=== PATIENT | female | born 1980 | race Two or more races ===

== ENCOUNTER 2019-07-06 14:04 | Emergency (ER) | payer OTHER ==
[~2019-07-06] VITALS: Ht 165.1 cm; Wt 70.4 kg
[2019-07-06 14:14] VITALS: BP 138/76
--- NOTE | 2019-07-06 14:39 | PHYS DOC ---
Past History Past Medical History: No Pertinent History Past Surgical History: Appendectomy, Additional Past Surgical Histo: bilateral knee scopes, bunionectomy Alcohol Use: Occasionally General Adult EDM: Chief Complaint: SUICIDAL IDEATION HPI: HPI: 39-year-old female presents with suicidal ideation. The patient has been feeling depressed for an extended period of time. She has been thinking more about suicide lately. There is no specific inciting event. She has not been developing a specific plan. She is just feeling overwhelmed by life right now. The patient was admitted to an inpatient facility in the . Patient denies any current self-harm. She denies drug use. She did have 1 alcoholic beverage yesterday. Denies fever chills. Review of Systems: Review of Systems: Constitutional: Denies fever or chills Eyes: Denies change in visual acuity HENT: Denies nasal congestion or sore throat Respiratory: Denies cough or shortness of breath Cardiovascular: Denies chest pain or edema GI: Denies abdominal pain, nausea, vomiting, bloody stools or diarrhea : Denies dysuria Musculoskeletal: Denies back pain or joint pain Integument: Denies rash Neurologic: Denies headache, focal weakness or sensory changes Endocrine: Denies polyuria or polydipsia Lymphatic: Denies swollen glands Psychiatric: Depression and suicidal ideation Heart Score: Risk Factors: Risk Factors: DM, Current or recent (<one month) smoker, HTN, HLP, family history of CAD, obesity. Risk Scores: Score 0 - 3: 2.5% MACE over next 6 weeks - Discharge Home Score 4 - 6: 20.3% MACE over next 6 weeks - Admit for Clinical Observation Score 7 - 10: 72.7% MACE over next 6 weeks - Early Invasive Strategies Allergies: Allergies: Allergies Coded Allergies Type Severity Reaction Last Updated Verified No Known Drug Allergies 07/06/19 No Physical Exam: PE: Constitutional: Well developed, well nourished, no acute distress, non-toxic appearance. [] HENT: Normocephalic, atraumatic, bilateral external ears normal, oropharynx moist, no oral exudates, nose normal. [] Eyes: PERRLA, EOMI, conjunctiva normal, no discharge. [] Neck: Normal range of motion, no tenderness, supple, no stridor. [] Cardiovascular: Heart rate regular rhythm, no murmur [] Lungs & Thorax: Bilateral breath sounds clear to auscultation [] Abdomen: Bowel sounds normal, soft, no tenderness, no masses, no pulsatile masses. [] Skin: Warm, dry, no erythema, no rash. [] Back: No tenderness, no CVA tenderness. [] Extremities: No tenderness, no cyanosis, no clubbing, ROM intact, no edema. [] Neurologic: Alert and oriented X 3, normal motor function, normal sensory function, no focal deficits noted. [] Psychologic: Affect flat, judgement normal, mood depressed, tearful. [] Current Patient Data: Vital Signs: Vital Signs Date Time Temp Pulse Resp B/P (MAP) Pulse Ox O2 Delivery O2 Flow Rate FiO2 07/05/ 14:14 98.0 92 20 138/76 (96) 100 Room Air EKG: EKG: [] Radiology/Procedures: Radiology/Procedures: [] Course & Med Decision Making: Course & Med Decision Making Pertinent Labs and Imaging studies reviewed. (See chart for details) Patient's labs are unremarkable. Her urinalysis is negative for infection or drug use. She is ready for psychiatric evaluation. Her screening is in process. Patient does not meet criteria for inpatient admission. She will be discharged with a safety plan. [] Dragon Disclaimer: Dragon Disclaimer: This electronic medical record was generated, in whole or in part, using a voice recognition dictation system. Departure Departure: Impression: Primary Impression: Depression with suicidal ideation Disposition: HOME/RESIDENCE PRIOR TO ADM Condition: STABLE Referrals: PCP,NO (PCP) Patient Instructions: Depression, Adult, [id number], Suicidal Feelings, How to Help Yourself ANY LUDWIG DO July 06, 2019 14:39
[2019-07-06 15:24] LABS: BASO # 0.1 x10^3/uL (0.0-0.2); BASO % 1 % (0-3); EOS # 0.1 x10^3/uL (0.0-0.7); EOS % 1 % (0-3); HEMATOCRIT 39.6 % (36.0-47.0); HEMOGLOBIN 13.4 g/dL (12.0-15.5); LYMPH # 1.7 x10^3/uL (1.0-4.8); LYMPH % 20 % (24-48); MEAN CORPUSCULAR HEMOGLOBIN 33 pg (25-35); MEAN CORPUSCULAR HGB CONC 34 g/dL (31-37); MEAN CORPUSCULAR VOLUME 98 fL (79-100); MONO # 0.6 x10^3/uL (0.0-1.1); MONO % 7 % (0-9); NEUT % 71 % (31-73); PLATELET COUNT 253 x10^3/uL (140-400); RED BLOOD COUNT 4.06 x10^6/uL (3.50-5.40); RED CELL DISTRIBUTION WIDTH 12.8 % (11.5-14.5); WHITE BLOOD COUNT 8.5 x10^3/uL (4.0-11.0)
[2019-07-06 15:40] LABS: BILIRUBIN,URINE NEG (NEG); CLARITY,URINE CLEAR; COLOR,URINE YELLOW; GLUCOSE,URINE NEG (NEG)
[2019-07-06 15:41] LABS: BACTERIA,URINE FEW /HPF (0-FEW); NITRITE,URINE NEG (NEG); RBC,URINE OCC /HPF (0-2); SQUAMOUS EPITHELIAL CELL,UR FEW /LPF; UROBILINOGEN,URINE 0.2 mg/dL (0.2 mg/dL); WBC,URINE OCC /HPF (0-4)
[2019-07-06 15:46] LABS: BARBITURATES NEG (NEG); BENZODIAZEPINES NEG (NEG); CANNABINOIDS NEG (NEG); COCAINE NEG (NEG); METHADONE NEG (NEG); OPIATES NEG (NEG); PHENCYCLIDINE NEG (NEG)
[2019-07-06 15:48] LABS: AMPHETAMINE/METHAMPHETAMINE NEG (NEG); CALCIUM 9.6 mg/dL (8.5-10.1); CREATININE 0.9 mg/dL (0.6-1.0); GFR 69.3; POTASSIUM 4.1 mmol/L (3.5-5.1)
[2019-07-06 15:56] LABS: ALBUMIN 4.4 g/dL (3.4-5.0); ALBUMIN/GLOBULIN RATIO 1.4 (1.0-1.7); TOTAL BILIRUBIN 0.4 mg/dL (0.2-1.0); TOTAL PROTEIN 7.6 g/dL (6.4-8.2)
[2019-07-06 16:14] LABS: U PREG PATIENT NEGATIVE (NEG)
== END 2019-07-06 19:50 | disposition home or self-care (01) ==
LOC: ER 14:04
DX: F32.9 Major depressive disorder, single episode, unspecified (principal); R45.851 Suicidal ideations
CPT/HCPCS: 36415; 80053; 80307; 81001; 81025; 85025; 99283

== ENCOUNTER → 2020-02-28 | Outpatient (CLI) | payer OTHER ==
[~2020-02-28] MED LIST: ASCO500C PO; CALC600T23 PO; KRIL1CAP21 PO; MULT-766 PO
== END ==
LOC: LAB 07:40
PROVIDERS: ATTEND Nurse Anesthetist, Certified Registered
DX: Z01.812 Encounter for preprocedural laboratory examination (principal); K42.9 Umbilical hernia without obstruction or gangrene; Z20.828 Contact with and (suspected) exposure to other viral communicable diseases
CPT/HCPCS: U0003

== ENCOUNTER → 2020-03-03 | Day surgery (SDC) | payer OTHER ==
[~2020-03-03] MED LIST changes: +ACETAMINOPHEN 500 MG TABLET PO ONE; +BUPIVACAINE-EPI 0.25%-1:200000 MPF 30 ML VIAL. ONE; +CEFAZOLIN SODIUM IV ONE; +GLYCOPYRROLATE 1 MG/5 ML VIAL. ONE; +IPRATRPIUM/ALBUTEROL 0.5/2.5MG 3 ML NEBU. NEB PRN; +IV RINGERS SOLUTION,LACTATED 1,000 ML IV SCH; +LIDOCAINE 2% PF 5 ML VIAL. ONE; +MIDAZOLAM HCL PF 2 MG/2 ML VIAL. IV ONE; +MIDAZOLAM HCL PF 2 MG/2 ML VIAL. ONE; +NEOSTIGMINE 10 MG/10 ML VIAL. ONE; +NORMAL SALINE IV ONE; +ONDANSETRON PF 4 MG/2 ML VIAL. IV PRN; +ONDANSETRON PF 4 MG/2 ML VIAL. ONE; +PROPOFOL 10,000 MCG/ML (20ML) VIAL IV ONE; +ROCURONIUM 50 MG/5 ML VIAL. ONE; +SEVOFLURANE 31 TO 60 MINUTES. IH ONE; +ceFAZolin SODIUM 1 GM VIAL ONE
[2020-03-03 12:00] LABS: U PREG PATIENT NEGATIVE (NEG)
--- NOTE | 2020-03-03 12:37 | PDOC4 ---
Operative Report DATE March 03, 2020 at 1235 Preop Diagnosis Umbilical hernia Post-op Diagnosis Umbilical hernia Operation Performed Umbilical hernia repair Patient is 39-year-old female with an umbilical hernia. The procedure of umbilical hernia repair explained to the patient detail risk-benefit were also discussed including bleeding infection alternatives to this procedure also discussed with the patient who seemed to understand and gave both verbal and written consent to have the procedure performed. Patient was taken to the oper ating room placed in the supine position general anesthesia was initiated once patient was sleeping in bed her abdomen was prepped and draped usual sterile fashion using ChloraPrep. Area around the umbilicus injected with quarter percent Marcaine with epinephrine incision was made 15 blade scalpel. This was carried down through the subcutaneous tissue using electrocautery right h emostasis the hernia defect was visualized and closed with [id number] 0 Vicryl suture. Skin was reapproximated 4-0 subcuticular Monocryl Mastisol Steri-Strips and island dressings were applied. Patient was awakened and extubated in the operating room taken to recovery in stable condition all sponge instrument needle counts listed as correct estimated blood loss 5 mL Surgeon Andrzej ANESTHESIA PROPOSED: GENERAL Blood Loss 5 mL Specimen None Complications None ZACH ALVAREZ MD Mar 03, 2020 12:37
--- NOTE | 2020-03-03 12:38 | DISCH ---
DISCHARGE INSTRUCTIONS-DC Condition on Discharge Condition on Discharge: Stable Activity after Discharge Activity Instructions for Disc: Avoid exertion Other activity instructions: No lifting more than 20 pounds for 2 weeks Diet after Discharge Diet after Discharge: Regular Wound/Incision Care Other wound/incision instructi: May shower in 24 hours Contacting the [facility] after DC Call your doctor for: If your condition worsens Follow-Up Follow up with: Dr. Alvarez in 2 weeks ZACH ALVAREZ MD Mar 03, 2020 12:38
[2020-03-03 13:48] VITALS: BP 109/67
== END | disposition home or self-care (01) ==
LOC: SURG 11:16
PROVIDERS: ATTEND Surgery
DX: K42.9 Umbilical hernia without obstruction or gangrene (principal); F32.9 Major depressive disorder, single episode, unspecified; Z98.891 History of uterine scar from previous surgery; Z79.899 Other long term (current) drug therapy; Z72.89 Other problems related to lifestyle
CPT/HCPCS: 49585; 81025; J0690; J2001; J2250; J2405; J2704; J2710; J3010; J3490; J7120